=== PATIENT | female | born 1995 | race American Indian/Alaskan Native ===

== ENCOUNTER 2017-10-24 10:41 | Emergency (ER) | payer MEDICAID ==
--- NOTE | 2017-10-24 11:12 | EDM.PDOC ---
ED HPI GENERAL MEDICAL PROBLEM - General Chief Complaint: Neurological Problem Stated Complaint: TRI NUROLGIA Time Seen by Provider: 10/24/17 11:12 Source of Information: Reports: Patient, Family, RN, RN Notes Reviewed History Limitations: Reports: No Limitations - History of Present Illness INITIAL COMMENTS - FREE TEXT/NARRATIVE: Pt to ER with c/o garbled speech at work about 0930 today. Mother in the room states her co-worker states the patient was saying inappropriate words that did not make sense for a short period of time this morning. Patient states a history of trigeminal neuralgia for which she has been doctoring with Dr. Ko at [facility]. Patient states she has been having more than usual episodes recently which Dr. Ko attributes to the hormone in the Depo shot she recently received. Patient states she had a terribly pain in the right temporal area which is somewhat different that the usual episodes she has, which are generally in the jaw, occurred last night, rated pain 10/10. Patient states on the way into the ER her right wrist was giving her significant pain. Patient denies any recent trauma, denies numbness or tingling, no visual disturbances, N/V/D. Admits to dizziness, weakness, tired, chills. Last head CT was about 1 year ago. Onset: Today, Sudden - Related Data Allergies Allergy/AdvReac Type Severity Reaction Status Date / Time oxcarbazepine Allergy Hives Verified 10/24/17 11:18 [From Trileptal] Home Meds: Home Meds Gabapentin [Neurontin] 600 mg PO PRN 10/24/17 [History] carBAMazepine [Tegretol] 200 mg PO BID 10/24/17 [History] Past Medical History - Past Health History Medical/Surgical History: Denies Medical/Surgical History ED ROS GENERAL - Review of Systems Review Of Systems: ROS reveals no pertinent complaints other than HPI. ED EXAM, NEURO - Physical Exam Exam: See Below Exam Limited By: No Limitations General Appearance: Alert, WD/WN, No Apparent Distress Eye Exam: Bilateral Eye: EOMI, Normal Inspection Ears: Normal External Exam, Normal Canal, Hearing Grossly Normal, Normal TMs Nose: Normal Inspection, Normal Mucosa, No Blood Throat/Mouth: Normal Inspection, Normal Lips, Normal Teeth, Normal Gums, Normal Oropharynx, Normal Voice, No Airway Compromise Head Exam: Atraumatic, Normocephalic Neck: Normal Inspection, Supple, Non-Tender, Full Range of Motion Respiratory/Chest: No Respiratory Distress, Lungs Clear, Normal Breath Sounds, No Accessory Muscle Use, Chest Non-Tender Cardiovascular: Normal Peripheral Pulses, Regular Rate, Rhythm, No Edema, No Gallop, No JVD, No Murmur, No Rub GI/Abdominal: Normal Bowel Sounds, Soft, Non-Tender, No Organomegaly, No Distention, No Abnormal Bruit, No Mass (Female) Exam: Deferred Rectal (Female) Exam: Deferred Neurological: Alert, Normal Mood/Affect, CN II-XII Intact, Normal Gait, No Motor /Sensory Deficits, Oriented x 3 Back Exam: Normal Inspection, Full Range of Motion Extremities: Normal Inspection, Normal Range of Motion, Non-Tender, No Pedal Edema, Normal Capillary Refill Psychiatric: Normal Affect, Normal Mood Skin Exam: Warm, Dry, Intact, Normal Color, No Rash Course - Vital Signs Last Recorded V/S: Last Vital Signs Temp 97.5 F 10/24/17 11:11 Pulse 80 10/24/17 11:11 Resp 16 10/24/17 11:11 BP 122/81 10/24/17 11:11 Pulse Ox 100 10/24/17 11:11 - Orders/Labs/Meds Orders: Active Orders 24 hr Category Date Time Status Brain wo Cont [MR] Urgent Exams 10/24/17 12:20 Taken DRUG SCREEN URINE BIORAD [URCHEM] Stat Lab 10/24/17 11:41 Ordered HCG QUALITATIVE,URINE [URCHEM] Stat Lab 10/24/17 11:41 Ordered UA W/MICROSCOPIC [URIN] Stat Lab 10/24/17 11:41 Ordered Labs: Laboratory Tests 10/24/17 10/24/17 10/24/17 Range/Units 11:41 11:41 11:41 WBC (5.0-10.0) 10^3/uL RBC (4.2-5.4) 10^6/uL Hgb (12.0-16.0) g/dL Hct (37.0-47.0) % MCV (80-100) fL MCH (27.0-34.0) pg MCHC (33.0-35.0) g/dL Plt Count (150-450) 10^3/uL Neut % (Auto) (42.2-75.2) % Lymph % (Auto) (20.5-50.1) % Dodge % (Auto) (2-8) % Eos % (Auto) (1.0-3.0) % Baso % (Auto) (0.0-1.0) % Sodium (135-145) mmol/L Potassium (3.6-5.0) mmol/L Chloride (101-111) mmol/L Carbon Dioxide (21.0-31.0) mmol/L Anion Gap BUN (7-18) mg/dL Creatinine (0.6-1.3) mg/dL Est Cr Clr Drug Dosing mL/min Estimated GFR (MDRD) BUN/Creatinine Ratio Glucose (74-105) mg/dL Calcium (8.4-10.2) mg/dl Total Bilirubin (0.2-1.0) mg/dL AST (10-42) IU/L ALT (10-60) IU/L Alkaline Phosphatase (42-121) IU/L Total Protein (6.7-8.2) g/dl Albumin (3.2-5.5) g/dl Globulin Albumin/Globulin Ratio Urine Color Dark yellow (YELLOW) Urine Appearance Turbid (CLEAR) Urine pH 6.0 (5.0-9.0) Ur Specific [place] 1.020 (1.005-1.030) Urine Protein Negative (NEGATIVE) Urine Glucose (UA) Negative (NEGATIVE) Urine Ketones Negative (NEGATIVE) Urine Occult Blood Large H (NEGATIVE) Urine Nitrite Negative (NEGATIVE) Urine Bilirubin Negative (NEGATIVE) Urine Urobilinogen 0.2 (0.2-1.0) mg/dL Ur Leukocyte Esterase Trace H (NEGATIVE) Urine RBC >100 H /HPF Urine WBC 5-10 H (0-5/HPF) /HPF Ur Epithelial Cells Moderate H /HPF Amorphous Sediment Rare (0/HPF) /HPF Urine Bacteria Rare (0-FEW/HPF) /HPF Urine Mucus Rare /LPF Urine HCG, Qual Negative Urine Opiates Screen Negative (NEGATIVE) Ur Oxycodone Screen Negative (NEGATIVE) Urine Methadone Screen Negative (NEGATIVE) Ur Barbiturates Screen Negative (NEGATIVE) U Tricyclic Antidepress Negative (NEGATIVE) Ur Phencyclidine Scrn Negative (NEGATIVE) Ur Amphetamine Screen Negative (NEGATIVE) U Methamphetamines Scrn Negative (NEGATIVE) Urine MDMA Screen Negative (NEGATIVE) U Benzodiazepines Scrn Negative (NEGATIVE) Urine Cocaine Screen Negative (NEGATIVE) U Marijuana (THC) Screen Negative (NEGATIVE) Ethyl Alcohol mg/dL 10/24/17 10/24/17 Range/Units 11:41 11:41 WBC 7.5 (5.0-10.0) 10^3/uL RBC 5.21 (4.2-5.4) 10^6/uL Hgb 11.2 L (12.0-16.0) g/dL Hct 37.1 (37.0-47.0) % MCV 71.2 L (80-100) fL MCH 21.5 L (27.0-34.0) pg MCHC 30.2 L (33.0-35.0) g/dL Plt Count 391 (150-450) 10^3/uL Neut % (Auto) 65.4 (42.2-75.2) % Lymph % (Auto) 28.7 (20.5-50.1) % Dodge % (Auto) 4.5 (2-8) % Eos % (Auto) 1.1 (1.0-3.0) % Baso % (Auto) 0.3 (0.0-1.0) % Sodium 135 (135-145) mmol/L Potassium 3.8 (3.6-5.0) mmol/L Chloride 102 (101-111) mmol/L Carbon Dioxide 25.0 (21.0-31.0) mmol/L Anion Gap 11.8 BUN 9 (7-18) mg/dL Creatinine 0.8 (0.6-1.3) mg/dL Est Cr Clr Drug Dosing 101.51 mL/min Estimated GFR (MDRD) > 60 BUN/Creatinine Ratio 11.25 Glucose 93 (74-105) mg/dL Calcium 8.9 (8.4-10.2) mg/dl Total Bilirubin 0.5 (0.2-1.0) mg/dL AST 28 (10-42) IU/L ALT 38 (10-60) IU/L Alkaline Phosphatase 81 (42-121) IU/L Total Protein 8.2 (6.7-8.2) g/dl Albumin 4.0 (3.2-5.5) g/dl Globulin 4.2 Albumin/Globulin Ratio 0.95 Urine Color (YELLOW) Urine Appearance (CLEAR) Urine pH (5.0-9.0) Ur Specific [place] (1.005-1.030) Urine Protein (NEGATIVE) Urine Glucose (UA) (NEGATIVE) Urine Ketones (NEGATIVE) Urine Occult Blood (NEGATIVE) Urine Nitrite (NEGATIVE) Urine Bilirubin (NEGATIVE) Urine Urobilinogen (0.2-1.0) mg/dL Ur Leukocyte Esterase (NEGATIVE) Urine RBC /HPF Urine WBC (0-5/HPF) /HPF Ur Epithelial Cells /HPF Amorphous Sediment (0/HPF) /HPF Urine Bacteria (0-FEW/HPF) /HPF Urine Mucus /LPF Urine HCG, Qual Urine Opiates Screen (NEGATIVE) Ur Oxycodone Screen (NEGATIVE) Urine Methadone Screen (NEGATIVE) Ur Barbiturates Screen (NEGATIVE) U Tricyclic Antidepress (NEGATIVE) Ur Phencyclidine Scrn (NEGATIVE) Ur Amphetamine Screen (NEGATIVE) U Methamphetamines Scrn (NEGATIVE) Urine MDMA Screen (NEGATIVE) U Benzodiazepines Scrn (NEGATIVE) Urine Cocaine Screen (NEGATIVE) U Marijuana (THC) Screen (NEGATIVE) Ethyl Alcohol < 5 mg/dL - Radiology Interpretation Free Text/Narrative:: Head CT without contrast: No new intracranial mass lesion, infarct or signs of acute intracranial bleed. No mastoiditis. See Rad report MRI without contrast: Sent to Neuro Radiology, no results yet. See rad report - Re-Assessments/Exams Free Text/Narrative Re-Assessment/Exam: 10/24/17 14:34 Dicussed discharge with patient and her mother. No acute expressive aphagia while in the ER, no pain while here. Patient and her mother instructed to make an appointment with Dr. Ko or Dr. Leiva in the near future to review the results of the MRI. Patient and mother state understanding. Departure - Departure Time of Disposition: 14:35 Disposition: Home, Self-Care 01 Condition: Fair Clinical Impression: Expressive aphasia, Severe headache, Trigeminal neuralgia of right side of face - Discharge Information *PRESCRIPTION DRUG MONITORING PROGRAM REVIEWED*: No *COPY OF PRESCRIPTION DRUG MONITORING REPORT IN PATIENT JR: No Instructions: Trigeminal Neuralgia Referrals: Rayray Leiva MD [Primary Care Provider] - Forms: ED Department Discharge Additional Instructions: Follow up with Dr. Leiva and/or Dr. Ko Return to the ER with any further or worsening problems. - My Orders Last 24 Hours: My Active Orders 10/24/17 11:41 DRUG SCREEN URINE BIORAD [URCHEM] Stat HCG QUALITATIVE,URINE [URCHEM] Stat UA W/MICROSCOPIC [URIN] Stat 10/24/17 12:20 Brain wo Cont [MR] Urgent - Assessment/Plan Last 24 Hours: My Active Orders 10/24/17 11:41 DRUG SCREEN URINE BIORAD [URCHEM] Stat HCG QUALITATIVE,URINE [URCHEM] Stat UA W/MICROSCOPIC [URIN] Stat 10/24/17 12:20 Brain wo Cont [MR] Urgent
[2017-10-24 12:08] LABS: ANION GAP 11.8; CHLORIDE,CL 102 mmol/L (101-111); SODIUM,NA 135 mmol/L (135-145)
--- NOTE | 2017-10-24 12:33 | CT ---
CLINICAL HISTORY: 22-year-old female who experienced severe right temporal pain and "garbled" speech (now resolved) last night. Incidentally, Depo-Provera "shot" yesterday this patient who has been diag nosed in the past with "trigeminal neuralgia", usually the mandibular branch. MRI exam (with/without gadolinium) 22 November 2016 reported as "unremarkable for age". Follow-up please. SCAN TECHNIQUE: Volume acquisition of data from an emergency unenhanced CT scan of the head and brain obtained while the patient was lying supine on the Siemens multislice scanner [place], [place]. All data archived in the PACS system for storage, reformatting axial/sagit july/coronal planes and study (bone/brain windows). INTERPRETATION: 1. No new evidence brainstem (cerebral peduncle), thalamic or internal capsule mass appreciated when compared to axial T1 MRI images exam November 2016. Suggest reevaluation/comparison with unenhanced MR I may help since change in symptomatology. 2. Uniformly thick bony calvarium and symmetric clear pneumatization of the paranasal/mastoid sinuses . No inflammation. 3. No new focal areas of ischemic infarct. Symmetric mendez-white matter pattern and underlying mirror- image normal ventricles. 4. No sign of acute intracerebral/intraventricular/subarachnoid bleed. No extracerebral/intracranial epidural or subdural hematoma. 5. Normal cerebellum. No supratentorial or posterior fossa mass lesion. No hydrocephalus. CONCLUSION: No new intracranial mass lesion, infarct or signs of acute intracranial bleed. No mastoid itis.
== END 2017-10-24 14:49 | disposition home or self-care (01) ==
LOC: DL.ED 10:41
DX: G50.0 Trigeminal neuralgia (principal); R47.01 Aphasia; Z88.8 Allergy status to other drugs, medicaments and biological substances
CPT/HCPCS: 36415; 70450; 70551; 80053; 80305; 81001; 81025; 85025; 99285; G0480